=== PATIENT | female | born 1955 | race Caucasian/White ===

== ENCOUNTER 2018-01-07 07:40 | Day surgery (SDC) | payer BC ==
[~2018-01-07 07:40] MED LIST: PROPOFOL 200 MG INJ
[2018-01-07] MEDS ORDERED: HYDROmorphONE 1 MG/5 ML IV SYRINGE IV (10:30)
[2018-01-07] MEDS ORDERED: ONDANSETRON 4 MG INJ IV (10:30)
[2018-01-07] MEDS ORDERED: FENTAnyl 50 MCG/ML VIAL IV ×2 (10:30)
[2018-01-07] MEDS ORDERED: PROPOFOL 20 ML (10:32)
[2018-01-07] MEDS ORDERED: MIDAZOLAM 1 MG/ML 2 ML INJ (10:32)
[2018-01-07] MEDS ORDERED: FENTAnyl 50 MCG/ML VIAL (10:32)
[2018-01-07] MEDS ORDERED: CEFAZOLIN 1 GM INJ (10:35)
[2018-01-07] MEDS ORDERED: LIDOCAINE 2% (SDV) 5 ML INJ (10:35)
[2018-01-07] MEDS ORDERED: GLYCOPYRROLATE 0.4 MG INJ (10:53)
[2018-01-07] MEDS: LIDOCAINE 1% (MPF) 30 ML INJ INJ ×2 (11:27)
== END 2018-01-07 14:18 | disposition home or self-care (01) ==
LOC: SDS 07:40
DX: I83.891 Varicose veins of right lower extremity with other complications (principal)
CPT/HCPCS: 37765; 93005